=== PATIENT | female | born 1960 | race Caucasian/White ===

== ENCOUNTER 2020-11-24 13:43 | Outpatient (CLI) | payer OTHER, SELFPAY ==
--- NOTE | 2020-11-24 13:54 | XR_ITS ---
WS: [id number] Chest 2 views, 11/24/2020 Clinical Data: ATYPICAL CHEST PAIN Comparison: None. Findings: No nodules, masses or effusions are seen. The heart is normal. The pulmonary vascularity is not increased. No pneumonia or pneumothorax is seen. Aortic arch and descending aorta are tortuous. XR/XR chest 2V* [id number] Impression: Atherosclerosis.
== END 2020-11-24 13:44 | disposition home or self-care (01) ==
PROVIDERS: PCP Family Medicine; Visit Provider Family Medicine
DX: R07.89 Other chest pain (principal); I70.90 Unspecified atherosclerosis
CPT/HCPCS: 71046